=== PATIENT | female | born 1935 | race Hispanic/Latino ===

== ENCOUNTER 2017-06-26 21:49 | Emergency (ER) | payer MEDICARE ==
[2017-06-26] MEDS ORDERED: SODIUM CHLORIDE 0.9% 1000ML 1,000 ML IV ONE (22:48)
[2017-06-26] MEDS ORDERED: ACETAMINOPHEN 325 MG TAB ONE (22:49)
[2017-06-26 23:09] LABS: APPEARANCE,URINE Clear (CLEAR); BILIRUBIN,URINE Negative (NEGATIVE); COLOR,URINE Yellow (YELLOW); GLUCOSE, URINE (UA) Negative (NEGATIVE); KETONES,URINE Negative (NEGATIVE); LEUKOCYTE ESTERASE ,URINE Trace (NEGATIVE); NITRATE,URINE Negative (NEGATIVE); OCCULT BLOOD,URINE Negative (NEGATIVE); PH,URINE 6.5 (5.0-8.0); PROTEIN,URINE Negative (NEGATIVE); UROBILINOGEN,URINE 0.2 mg/dL (0.2-1.0)
[2017-06-26 23:15] LABS: BACTERIA,URINE None Seen /HPF (None Seen); RBC,URINE None Seen /HPF (0-1); SQUAMOUS EPITHELIAL CELL,UR Rare /LPF (0-2); WBC,URINE 0-1 /HPF (0-1)
[2017-06-26 23:18] LABS: BASOPHILS % (AUTO) 0.9 % (0.0-5.0); HEMATOCRIT 36.5 % (36-48); LYMPHOCYTES % (AUTO) 19.8 % (21.0-51.0); MEAN CORPUSCULAR HEMOGLOBIN 34.7 pg (27.0-33.0); MEAN CORPUSCULAR VOLUME 96.3 fL (79-99); MONOCYTES % (AUTO) 8.9 % (3.0-13.0); NEUTROPHILS % (AUTO) 69.4 % (40.0-77.0); PLATELET COUNT (AUTO) 227 K/uL (130-400); RED BLOOD CELL COUNT(AUTO) 3.79 MIL/uL (4.00-5.50); RED CELL DISTRIBUTION WIDTH 12.4 % (11.0-15.5)
[2017-06-26 23:26] LABS: CREATININE 0.9 mg/dL (0.5-1.5); POTASSIUM 3.7 mmol/L (3.5-5.1)
[2017-06-26] MEDS ORDERED: OSELTAMIVIR PHOSPHATE 75 MG CAP ONE (23:53)
== END 2017-06-27 01:04 | disposition home or self-care (01) ==
LOC: EDH 21:49
DX: J11.1 Influenza due to unidentified influenza virus with other respiratory manifestations (principal); E11.9 Type 2 diabetes mellitus without complications; E78.5 Hyperlipidemia, unspecified; E07.9 Disorder of thyroid, unspecified; L93.0 Discoid lupus erythematosus
CPT/HCPCS: 36415; 71045; 80048; 81001; 85025; 87804 ×2; 96360; 96361; 99285; J7030

== ENCOUNTER 2023-08-31 21:40 | Emergency (ER) | payer MEDICARE ==
[2023-08-31 22:47] LABS: BASOPHILS # (AUTO) 0.04 K/uL (0.00-0.20); BASOPHILS % (AUTO) 0.3 % (0.0-5.0); EOSINOPHILS # (AUTO) 0.16 K/uL (0.00-0.70); EOSINOPHILS % (AUTO) 1.3 % (0.0-8.0); HEMATOCRIT 34.4 % (36-48); IMMATURE GRANULOCYTE ABSOLUTE 0.05 K/uL (0-1); LYMPHOCYTES # (AUTO) 1.1 K/uL (1.0-4.8); LYMPHOCYTES % (AUTO) 9.4 % (21.0-51.0); MEAN CORPUSCULAR HEMOGLOBIN 33.7 pg (27.0-33.0); MEAN CORPUSCULAR HGB CONC 35.2 g/dL (32.0-36.0); MEAN CORPUSCULAR VOLUME 95.8 fL (79-99); MONOCYTES # (AUTO) 0.6 K/uL (0.1-1.0); MONOCYTES % (AUTO) 4.6 % (3.0-13.0); NEUTROPHILS # (AUTO) 10.1 K/uL (1.8-7.7); PLATELET COUNT (AUTO) 199 K/uL (130-400); RED BLOOD CELL COUNT(AUTO) 3.59 MIL/uL (4.00-5.50); RED CELL DISTRIBUTION WIDTH 12.2 % (11.0-15.5); WHITE BLOOD COUNT (AUTO) 12.1 K/uL (4.8-10.8)
[2023-08-31 22:56] LABS: CREATININE 1.1 mg/dL (0.5-1.0); POTASSIUM 4.3 mmol/L (3.5-5.1)
[2023-08-31 23:00] LABS: ALBUMIN 3.6 g/dL (3.5-5.0); BILIRUBIN,TOTAL 0.3 mg/dL (0.2-1.0); TOTAL PROTEIN, SERUM 7.3 g/dL (6.0-8.3)
[2023-08-31] MEDS: LACTATED RINGERS 1000ML 1,000 ML IV ONE (23:02)
[2023-08-31] MEDS: LIDOCAINE HCL 2% VISCOUS 15 ML UDCUP PO ONE (23:03)
[2023-08-31] MEDS: METOCLOPRAMIDE 10 MG/2 ML VIAL IVP ONE (23:03)
[2023-08-31] MEDS: MAG/ALUM/SIMETH 30 ML UDCUP PO ONE (23:03)
[2023-08-31] MEDS: FAMOTIDINE 20MG VIAL IV ONE (23:03)
[2023-08-31] MEDS: DICYCLOMINE HCL 10 MG/5 ML ML PO ONE (23:03)
[2023-08-31] MEDS ORDERED: CIPR-278 PO (23:39)
[2023-08-31] MEDS ORDERED: ONDA4TAB10 PO (23:39)
[2023-08-31] MEDS ORDERED: METR-172 PO (23:39)
[2023-08-31] MEDS: CYCLOBENZAPRINE HCL 10 MG TABLET PO ONE (23:58)
[2023-09-01 00:28] VITALS: BP 147/72; PULSE 82; RESP 17; O2SAT 95
[2023-09-01] MEDS ORDERED: METRONIDAZOLE 500MG/100ML BAG 100 ML IVPB SCH (06:00)
== END 2023-09-01 00:34 | disposition home or self-care (01) ==
LOC: EDH 21:40
DX: K52.9 Noninfective gastroenteritis and colitis, unspecified (principal); E11.9 Type 2 diabetes mellitus without complications; I10 Essential (primary) hypertension; M19.90 Unspecified osteoarthritis, unspecified site
CPT/HCPCS: 99284; 96374; 71045; 96361; 96375; 84484; 80053; 83690; 85025; 36415; 74018; 93005; J7120; J3490; J2765